=== PATIENT | male | born 1980 | race Caucasian/White ===

== ENCOUNTER 2018-11-05 11:19 | Emergency (ER) | payer SELFPAY ==
[~2018-11-05] VITALS: Ht 170.2 cm; Wt 79.6 kg
[2018-11-05 11:25] VITALS: Ht 170.2 cm; Wt 79.6 kg
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
[2018-11-05] MEDS ORDERED: IBUP-1561 PO (13:12)
[2018-11-05] MEDS ORDERED: ACET325T33 PO (13:12)
[2018-11-05 13:55] VITALS: BP 129/82; PULSE 92; RESP 18
== END 2018-11-05 13:57 | disposition home or self-care (01) ==
LOC: FTE 11:19
DX: M79.662 Pain in left lower leg (principal)
CPT/HCPCS: 73562